=== PATIENT | male | born 1950 | race African-American/Black ===

== ENCOUNTER 2017-04-21 09:24 | Inpatient (IN) ==
[2017-04-21] MEDS ORDERED: ATROVENT NEB INH ONE (09:44)
[2017-04-21] MEDS ORDERED: SOLU-MEDROL IV ONE (09:44)
[2017-04-21] MEDS ORDERED: ALBUTEROL NEB INH ONE (09:44)
[2017-04-21 09:57] LABS: BE -4.4 mmoll (-3.0-3.0); BLOOD TYPE ARTERIAL; DRAW SITE R RADIAL; METHB 0.9 % (0.0-1.5); O2(CT) 13.9 mL/dL (15.0-23.0); PCO2(98.6) 25 mmHg (35-45); SAMPLE BLOOD; SAO2 76.7 % (95.0-100.0); THB 13.4 g/dL (11.5-17.4); pH(98.6) 7.46 (7.35-7.45)
[2017-04-21 09:59] LABS: ALLEN TEST YES; MODALITY ROOM AIR
[2017-04-21 10:01] LABS: PO2(98.6) 35 mmHg (60-100)
[2017-04-21 10:04] LABS: MANUAL DIFF NEEDED? NO
[2017-04-21 10:08] LABS: BASO% 0.2 % (0.0-0.8); EOS# 0.04 X1000 (0.0-0.7); EOS% 0.4 % (0.0-10.0); HEMOGLOBIN 13.2 g/dL (14.0-18.0); IMM GRAN# 0.05 X1000 (0.0-0.04); IMM GRAN% 0.5 % (0.0-0.5); LYMPH# 1.27 X1000 (1.2-3.4); MCH 31.7 PG (27-31); MCHC 34.7 g/dL (33-37); MCV 91.1 FL (81-99); MONO# 0.75 X1000 (0.11-0.59); MONO% 7.7 % (1.7-9.3); MPV 9.9 FL (7.4-10.4); NEUT% 78.2 % (42.2-75.2); PLT 183 X1000 (130-400); RBC 4.17 XMIL (4.7-6.1)
[2017-04-21 10:37] LABS: ALBUMIN 3.7 g/dL (3.5-5.0); POTASSIUM 3.4 mmol/L (3.5-5.1); TOTAL BILIRUBIN 2.9 mg/dL (0.20-1.00); TOTAL PROTEIN 7.5 g/dL (6.3-8.3)
[2017-04-21] MEDS ORDERED: ROCEPHIN 1 GM in NS 50 ML IV ONE (10:43)
[2017-04-21] MEDS ORDERED: NS 1,000 ML IV ONE ×2 (10:54→13:53)
[2017-04-21] MEDS ORDERED: NS 500 ML IV ONE (13:53)
[2017-04-21] MEDS ORDERED: LASIX ONE (14:59)
[2017-04-21] MEDS ORDERED: LASIX IV ONE (15:00)
[2017-04-21] MEDS ORDERED: ZITHROMAX 500 MG/NS 500 MG/250 ML IVPB IV ONE (15:04)
[2017-04-21] MEDS ORDERED: DUONEB (A & A) INH PRN (18:07)
[2017-04-21] MEDS: DUONEB (A & A) INH SCH ×2 (19:21→23:28)
[2017-04-21] MEDS: HUMALOG DOSE (PARKWAY) SUBQ SCH (21:50)
[2017-04-21] MEDS: SOLU-MEDROL IV SCH (21:51)
[2017-04-22] MEDS: DUONEB (A & A) INH SCH ×6 (03:34→23:35)
[2017-04-22] MEDS: SOLU-MEDROL IV SCH ×3 (04:46→20:21)
[2017-04-22] MEDS: PRILOSEC PO SCH (06:33)
[2017-04-22] MEDS: HUMALOG DOSE (PARKWAY) SUBQ SCH ×4 (06:33→20:21)
[2017-04-22 06:56] LABS: HEMATOCRIT 36.7 % (42.0-52.0); HEMOGLOBIN 12.7 g/dL (14.0-18.0); MCH 31.4 PG (27-31); MCHC 34.6 g/dL (33-37); MCV 90.8 FL (81-99); MPV 10.1 FL (7.4-10.4); RBC 4.04 XMIL (4.7-6.1)
[2017-04-22 07:12] LABS: ALBUMIN 3.3 g/dL (3.5-5.0); CALCIUM 8.4 mg/dL (8.8-10.2); TOTAL BILIRUBIN 1.1 mg/dL (0.20-1.00); TOTAL PROTEIN 6.8 g/dL (6.3-8.3)
[2017-04-22] MEDS ORDERED: KLOR-CON PO ONE (07:58)
[2017-04-22] MEDS: XARELTO PO SCH (08:25)
[2017-04-22] MEDS: NORVASC PO SCH (08:25)
[2017-04-22] MEDS: ROCEPHIN 1 GM in NS 50 ML IV SCH (11:21)
[2017-04-22] MEDS ORDERED: ZITHROMAX 500 MG/NS 500 MG/250 ML IVPB IV SCH ×2 (15:00)
[2017-04-22] MEDS: ZITHROMAX PO SCH (16:02)
[2017-04-23] MEDS: SOLU-MEDROL IV SCH ×2 (04:05→17:44)
[2017-04-23] MEDS: DUONEB (A & A) INH SCH ×6 (04:27→22:57)
[2017-04-23] MEDS: HUMALOG DOSE (PARKWAY) SUBQ SCH ×4 (06:10→20:24)
[2017-04-23] MEDS: PRILOSEC PO SCH (06:11)
[2017-04-23] MEDS: NORVASC PO SCH (08:46)
[2017-04-23] MEDS: XARELTO PO SCH (08:46)
[2017-04-23] MEDS: ROCEPHIN 1 GM in NS 50 ML IV SCH (11:10)
[2017-04-23] MEDS: ZITHROMAX PO SCH (14:57)
[2017-04-24] MEDS: DUONEB (A & A) INH SCH ×6 (03:04→22:49)
[2017-04-24] MEDS: SOLU-MEDROL IV SCH ×2 (04:06→16:25)
[2017-04-24] MEDS: PRILOSEC PO SCH (06:03)
[2017-04-24] MEDS: HUMALOG DOSE (PARKWAY) SUBQ SCH ×4 (06:06→21:45)
[2017-04-24 06:09] LABS: HEMATOCRIT 34.9 % (42.0-52.0); HEMOGLOBIN 11.7 g/dL (14.0-18.0); MCHC 33.5 g/dL (33-37); MCV 92.3 FL (81-99); MPV 9.7 FL (7.4-10.4); RBC 3.78 XMIL (4.7-6.1)
[2017-04-24 06:28] LABS: ALBUMIN 3.2 g/dL (3.5-5.0); CALCIUM 8.6 mg/dL (8.8-10.2); POTASSIUM 3.3 mmol/L (3.5-5.1); TOTAL BILIRUBIN 0.4 mg/dL (0.20-1.00); TOTAL PROTEIN 6.7 g/dL (6.3-8.3)
[2017-04-24] MEDS: LASIX IV SCH ×2 (08:03→18:49)
[2017-04-24] MEDS: XARELTO PO SCH (08:03)
[2017-04-24] MEDS: NORVASC PO SCH (09:30)
[2017-04-24] MEDS: ROCEPHIN 1 GM in NS 50 ML IV SCH (11:22)
[2017-04-24] MEDS: ZITHROMAX PO SCH (14:42)
[2017-04-25] MEDS: DUONEB (A & A) INH SCH ×3 (03:30→11:18)
[2017-04-25] MEDS: SOLU-MEDROL IV SCH (04:35)
[2017-04-25 05:41] LABS: HEMATOCRIT 35.8 % (42.0-52.0); HEMOGLOBIN 12.3 g/dL (14.0-18.0); MCH 31.5 PG (27-31); MCHC 34.4 g/dL (33-37); MCV 91.6 FL (81-99); MPV 10.3 FL (7.4-10.4); RBC 3.91 XMIL (4.7-6.1)
[2017-04-25 06:03] LABS: ALBUMIN 3.3 g/dL (3.5-5.0); CALCIUM 8.8 mg/dL (8.8-10.2); MAGNESIUM 1.6 mg/dL (1.5-2.7); TOTAL BILIRUBIN 0.4 mg/dL (0.20-1.00); TOTAL PROTEIN 6.7 g/dL (6.3-8.3)
[2017-04-25] MEDS: PRILOSEC PO SCH (06:15)
[2017-04-25] MEDS: HUMALOG DOSE (PARKWAY) SUBQ SCH ×2 (06:36→11:49)
[2017-04-25] MEDS: NORVASC PO SCH (08:36)
[2017-04-25] MEDS: XARELTO PO SCH (08:36)
[2017-04-25] MEDS: LASIX IV SCH (08:36)
[2017-04-25 13:48] VITALS: BP 110/79
[2017-04-25] MEDS: ZITHROMAX PO SCH (14:24)
[2017-04-25] MEDS ORDERED: OMNICEF PO SCH (21:00)
== END 2017-04-25 16:00 | disposition home or self-care (01) ==
LOC: P.ED 09:24 → P.MEDSURG 09:25
PROVIDERS: ATTEND Family Medicine